=== PATIENT | male | born 1995 | race Caucasian/White ===

== ENCOUNTER 2019-12-30 05:15 | Emergency (ER) | payer MEDICAID ==
[~2019-12-30] VITALS: Ht 180.3 cm; Wt 148.3 kg
[~2019-12-30 05:15] MED LIST: IBUP-1985 PO; IBUP-1986 PO; LURA120T PO
[2019-12-30] MEDS ORDERED: normal saline 1000ml 1,000 ML IV ONE ×2 (05:50)
[2019-12-30 06:34] LABS: ALBUMIN 4.4 G/DL (3.4-5.0); ANION GAP 10 (8-16); BLOOD UREA NITROGEN 15 MG/DL (7-18); BUN/CREATININE RATIO 12.1 (5.4-32.0); CALCIUM 9.9 MG/DL (8.5-10.1); CHLORIDE 100 MMOL/L (99-107); CREATININE 1.24 MG/DL (0.60-1.10); GLUCOSE 379 MG/DL (70-104); SODIUM 139 MMOL/L (135-145); TOTAL CARBON DIOXIDE 28.7 MMOL/L (24-32); eGFR 70 ML/MIN
[2019-12-30 06:41] LABS: POTASSIUM 3.7 MMOL/L (3.5-5.1)
[2019-12-30 07:49] VITALS: BP 162/93
== END 2019-12-30 07:51 | disposition home or self-care (01) ==
LOC: ER 05:16
DX: E11.65 Type 2 diabetes mellitus with hyperglycemia (principal); R39.198 Other difficulties with micturition; J45.909 Unspecified asthma, uncomplicated; F41.9 Anxiety disorder, unspecified; F31.9 Bipolar disorder, unspecified; F20.9 Schizophrenia, unspecified; Z90.89 Acquired absence of other organs; Z56.0 Unemployment, unspecified; Z59.0 Homelessness; Z79.899 Other long term (current) drug therapy
CPT/HCPCS: 36415; 80048; 82948; 96360; 99283; J7030

== ENCOUNTER 2020-01-01 00:17 | Emergency (ER) | payer MEDICAID ==
[~2020-01-01] VITALS: Ht 182.9 cm; Wt 136.0 kg
[2020-01-01 00:22] VITALS: BP 163/117
[2020-01-01 01:01] LABS: BASOPHILS # (AUTO) 0.1 X10'3 (0-0.2); BASOPHILS % (AUTO) 0.8 % (0-1); EOSINOPHILS # (AUTO) 0.1 X10'3 (0-0.9); EOSINOPHILS % (AUTO) 1.6 % (0-6); HEMATOCRIT 44.3 % (42.0-52.0); HEMOGLOBIN 15.3 g/dl (14.0-17.9); LYMPHOCYTES # (AUTO) 3.1 X10'3 (1.1-4.8); LYMPHOCYTES % (AUTO) 39.4 % (21-51); MEAN CORPUSCULAR HEMOGLOBIN 32.2 PG (27.0-31.0); MEAN CORPUSCULAR HGB CONC 34.6 g/dL (33.0-36.5); MEAN CORPUSCULAR VOLUME 92.9 FL (78-98); MEAN PLATELET VOLUME 9.6 FL (7.4-10.4); MONOCYTES # (AUTO) 0.6 X10'3 (0-0.9); MONOCYTES % (AUTO) 7.7 % (2-12); NEUTROPHILS % (AUTO) 50.5 % (42-75); PLATELET COUNT 216 X10'3 (140-440); RED BLOOD COUNT 4.77 X10'6 (4.70-6.10); RED CELL DISTRIBUTION WIDTH 13.2 % (11.5-14.5); WHITE BLOOD COUNT 7.9 X10'3 (4.5-11.0)
[2020-01-01 01:15] LABS: ALANINE AMINOTRANSFERASE 171 U/L (12-78); ALBUMIN 4.2 G/DL (3.4-5.0); ALBUMIN/GLOBULIN RATIO 1.3 (1.1-1.5); ALKALINE PHOSPHATASE 76 IU/L (46-116); ANION GAP 9 (8-16); ASPARTATE AMINO TRANSFERASE 42 U/L (10-37); BILIRUBIN,TOTAL 1.2 MG/DL (0.1-1.0); BLOOD UREA NITROGEN 12 MG/DL (7-18); BUN/CREATININE RATIO 10.5 (5.4-32.0); CALCIUM 8.9 MG/DL (8.5-10.1); CHLORIDE 103 MMOL/L (99-107); CREATININE 1.14 MG/DL (0.60-1.10); GLUCOSE 283 MG/DL (70-104); POTASSIUM 3.4 MMOL/L (3.5-5.1); SODIUM 139 MMOL/L (135-145); TOTAL CARBON DIOXIDE 26.9 MMOL/L (24-32); TOTAL PROTEIN 7.5 G/DL (6.4-8.2); eGFR 78 ML/MIN
[2020-01-01 01:20] LABS: URINE AMPHETAMINE SCREEN NEGATIVE (Neg); URINE BARBITUATE SCREEN NEGATIVE (Neg); URINE BENZODIAZEPINES SCREEN NEGATIVE (Neg); URINE CANNABINOID SCREEN NEGATIVE (Neg); URINE COCAINE SCREEN NEGATIVE (Neg); URINE METHADONE SCREEN NEGATIVE (Neg); URINE OPIATE SCREEN NEGATIVE (Neg); URINE PHENCYCLIDINE SCREEN NEGATIVE (Neg)
[2020-01-01] MEDS ORDERED: GLIP5TAB13 PO (01:25)
[2020-01-01] MEDS ORDERED: METF-436 PO (01:25)
[2020-01-01] MEDS ORDERED: MELO-102 PO (01:25)
[2020-01-01 01:31] LABS: ETHANOL < 0.010 GM/DL (0.0-0.010)
[2020-01-01] MEDS ORDERED: potassium Cl 20 mEq SR tablet PO STA (01:36)
--- NOTE | 2020-01-01 02:33 | NUR ---
PT APPEARS TO BE SLEEPING PEACEFULLY, NO S/S DISTRESS, RESPIRATIONS EVEN AND UNLABORED. WILL CONTINUE TO MONITOR.
--- NOTE | 2020-01-01 06:01 | NUR ---
PT APPEARS TO BE SLEEPING PEACEFULLY, NO S/S DISTRESS, RESPIRATIONS EVEN AND UNLABORED. WILL CONTINUE TO MONITOR.
--- NOTE | 2020-01-01 08:27 | NUR ---
BREAKFAST TRAY HERE, ACCUCHECK DONE BEFORE TRAY GIVEN AND 334. DR. GOODMAN ADVISED. PT DOESNT WANT TO EAT AT THIS TIME AND WENT BACK TO SLEEP. DENIES NEED AT THIS TIME.
--- NOTE | 2020-01-01 09:07 | NUR ---
SPOKE WITH PHARMACIST WHO STATED TO ORDER HYPERGLYCEMIA PROTOCOL THEN COMPLETE MED REC FOR PTS METFORMIN AND THEY WILL ISSUE IT. PT STATES HE DOESNT KNOW HOW MUCH METFORMIN HE TAKES OR WHICH PHARMACY HE USES, STATES, "LEAVE ME ALONE TO SLEEP". STILL HASNT TOUCHED HIS BREAKFAST.
[2020-01-01 09:11] LABS: HEMOGLOBIN A1C 9.5 % (4.5-6.2)
--- NOTE | 2020-01-01 10:19 | NUR ---
PT REFUSING INSULIN PROTOCOL. STATES HE NORMALLY SLEEPS IN AND DOESNT WANT ME IN HIS ROOM. MD NOTIFIED.
--- NOTE | 2020-01-01 10:57 | NUR ---
pt moved to bed 22. stated was unaware of blood sugar this morning. stated he is no longer suicidal and that he just needed to sleep and feels better now.
--- NOTE | 2020-01-01 11:08 | NUR ---
spoke to [place] about pt bs. ordered metformin 500mg bid as pt previously took it. pt stated only missed one day worth of medications.
[2020-01-01] MEDS ORDERED: metFORMIN 500mg tablet PO ONE ×2 (11:10→20:00)
--- NOTE | 2020-01-01 12:49 | NUR ---
relieving RN for break, pt is resting quietly on gurney,
--- NOTE | 2020-01-01 13:50 | NUR ---
jonathan packer notified of bs being elevated to 356. pt stated ate a brownie with lunch not long ago.
== END 2020-01-01 13:58 ==
LOC: ER 00:18
DX: R45.851 Suicidal ideations (principal); F31.9 Bipolar disorder, unspecified; F41.9 Anxiety disorder, unspecified; J45.909 Unspecified asthma, uncomplicated; F20.9 Schizophrenia, unspecified; Z59.0 Homelessness; Z56.0 Unemployment, unspecified; Z90.89 Acquired absence of other organs; Z79.899 Other long term (current) drug therapy
CPT/HCPCS: 36415; 80053; 80305; 80320; 82948; 83036; 84443; 85025; 99285

== ENCOUNTER 2020-01-27 20:58 | Emergency (ER) | payer MEDICAID ==
[~2020-01-27] VITALS: Ht 180.3 cm; Wt 144.5 kg
[~2020-01-27 20:58] MED LIST changes: +GLIP5TAB13 PO; -IBUP-1985 PO; -IBUP-1986 PO; -LURA120T PO; +MELO-102 PO; +METF-436 PO
[2020-01-27 22:19] LABS: BASOPHILS # (AUTO) 0.1 X10'3 (0-0.2); BASOPHILS % (AUTO) 0.6 % (0-1); EOSINOPHILS # (AUTO) 0.1 X10'3 (0-0.9); EOSINOPHILS % (AUTO) 1.2 % (0-6); HEMATOCRIT 44.1 % (42.0-52.0); HEMOGLOBIN 15.4 g/dl (14.0-17.9); LYMPHOCYTES # (AUTO) 3.8 X10'3 (1.1-4.8); LYMPHOCYTES % (AUTO) 38.5 % (21-51); MEAN CORPUSCULAR HEMOGLOBIN 32.5 PG (27.0-31.0); MEAN CORPUSCULAR HGB CONC 34.9 g/dL (33.0-36.5); MEAN PLATELET VOLUME 9.7 FL (7.4-10.4); MONOCYTES # (AUTO) 0.6 X10'3 (0-0.9); MONOCYTES % (AUTO) 5.9 % (2-12); NEUTROPHILS # (AUTO) 5.4 X10'3 (1.8-7.7); NEUTROPHILS % (AUTO) 53.8 % (42-75); PLATELET COUNT 207 X10'3 (140-440); RED BLOOD COUNT 4.74 X10'6 (4.70-6.10); RED CELL DISTRIBUTION WIDTH 12.6 % (11.5-14.5)
[2020-01-27 22:29] LABS: URINE AMPHETAMINE SCREEN NEGATIVE (Neg); URINE BARBITUATE SCREEN NEGATIVE (Neg); URINE BENZODIAZEPINES SCREEN NEGATIVE (Neg); URINE CANNABINOID SCREEN NEGATIVE (Neg); URINE COCAINE SCREEN NEGATIVE (Neg); URINE METHADONE SCREEN NEGATIVE (Neg); URINE OPIATE SCREEN NEGATIVE (Neg); URINE PHENCYCLIDINE SCREEN NEGATIVE (Neg)
[2020-01-27 22:38] LABS: ALBUMIN/GLOBULIN RATIO 1.1 (1.1-1.5); ANION GAP 12 (8-16); BILIRUBIN,TOTAL 0.5 MG/DL (0.1-1.0); BLOOD UREA NITROGEN 18 MG/DL (7-18); BUN/CREATININE RATIO 12.9 (5.4-32.0); CHLORIDE 100 MMOL/L (99-107); CREATININE 1.39 MG/DL (0.60-1.10); ETHANOL < 0.010 GM/DL (0.0-0.010); GLUCOSE 282 MG/DL (70-104); SODIUM 137 MMOL/L (135-145); TOTAL CARBON DIOXIDE 25.4 MMOL/L (24-32); TOTAL PROTEIN 7.5 G/DL (6.4-8.2); eGFR 62 ML/MIN
[2020-01-27 22:39] LABS: POTASSIUM 3.5 MMOL/L (3.5-5.1)
[2020-01-27 23:12] LABS: ALANINE AMINOTRANSFERASE 86 U/L (12-78); ALKALINE PHOSPHATASE 89 IU/L (46-116); ASPARTATE AMINO TRANSFERASE 32 U/L (10-37)
[2020-01-27] MEDS ORDERED: ARIP400S3 IM (23:23)
--- NOTE | 2020-01-28 06:25 | NUR ---
Pt walked over from main ER with nurse and placed in bed 24. Pt depressed with SI r/[facility] and being treated poorly by others. Pt planned on ingesting large amounts of soda to induce a diabetic coma. Pt sitting on bed in no acute distress.
[2020-01-28] MEDS ORDERED: aripiprazole 400mg suspension ER syringe IM SCH (06:40)
--- NOTE | 2020-01-28 06:51 | NUR ---
FAXED PACKET [facility]
[2020-01-28] MEDS: glipizide 5mg tablet PO SCH (08:16)
[2020-01-28] MEDS: metFORMIN 500mg tablet PO SCH ×2 (08:16→20:09)
[2020-01-28] MEDS: mupirocin 2% ointment 22GM TP SCH ×2 (10:10→20:09)
--- NOTE | 2020-01-28 10:29 | NUR ---
Pt calm and talkative before and after breakfast. Took meds w/o issue. Spoke with [facility] sewing machine operator plastic zipper and made personal phone calls. Pt continues to talk about wanting to go to a board and care that is nice and doesnt have roaches or bed bugs. Pt repoprts [facility] may be inquiring to get him to the [facility]. Pt received Abilify Maintenna 400 mg IM. Pt currently sleeping in bed w/o distress.
--- NOTE | 2020-01-28 14:27 | NUR ---
Pt slept till lunch and awoke to eat. Pt waiting to have phone interview with ASHLEY nino. Resting in bed w/o distress.
--- NOTE | 2020-01-28 17:18 | NUR ---
Pt woke and engaged in interview with [facility] staff. He felt good about possibility of getting a bed there and stated we will know tomorrow. Pt pleasant and cooperative and attempted to make a phone call before returning to sleep.
--- NOTE | 2020-01-28 17:23 | NUR ---
[facility] staff reported that Pt accepted at [facility] and would take him at 1100 8, tomorrow. Chest x-ray ordered to r/o TB.
--- NOTE | 2020-01-28 19:00 | NUR ---
One to one with the patient who reports he is feeling calm and tired. He stated that he has periodically been having suicidal thoughts but states he can be safe at the [facility]. He is pleasant and cooperative but has been sleeping. He ate 100% of his evening meal
--- NOTE | 2020-01-28 20:43 | NUR ---
The patient currently appears to be sleeping
[2020-01-28] MEDS ORDERED: Melatonin 3mg tablet PO SCH (21:00)
--- NOTE | 2020-01-28 22:39 | NUR ---
The patient appears to be sleeping
--- NOTE | 2020-01-29 00:11 | NUR ---
The patient appears to be sleeping
--- NOTE | 2020-01-29 01:43 | NUR ---
The patient appears to be sleeping
--- NOTE | 2020-01-29 04:07 | NUR ---
The patient appears to be sleeping
--- NOTE | 2020-01-29 04:56 | NUR ---
The patient appears to be sleeping
[2020-01-29 05:58] VITALS: BP 102/58
--- NOTE | 2020-01-29 06:41 | NUR ---
Patient sleeping on right side. No distress observed. Continue to monitor.
--- NOTE | 2020-01-29 07:28 | NUR ---
Spoke with Radiology. States no Radiologist today. They will send CXR to [facility] for reading. Patient to be sent to the [facility] at 11:00 pending results of the Xray.
[2020-01-29] MEDS: metFORMIN 500mg tablet PO SCH (08:15)
[2020-01-29] MEDS: glipizide 5mg tablet PO SCH (08:15)
[2020-01-29] MEDS: mupirocin 2% ointment 22GM TP SCH (08:15)
--- NOTE | 2020-01-29 09:34 | NUR ---
Breaking Primary RN, pt is laying on left side, eyes closed, appears to be asleep, no agitation observed
--- NOTE | 2020-01-29 11:13 | NUR ---
Break relief for primary nurse. Pt is resting in a position of comfort on the bed. Pt is awaiting transport to a mental health facility.
--- NOTE | 2020-01-29 11:47 | NUR ---
Patient ambulatory with fleet driver from [facility] to the [facility].
== END 2020-01-29 11:53 | disposition home or self-care (01) ==
LOC: ER 20:58
DX: R45.851 Suicidal ideations (principal); R79.1 Abnormal coagulation profile; J45.909 Unspecified asthma, uncomplicated; F41.9 Anxiety disorder, unspecified; F31.9 Bipolar disorder, unspecified; F20.9 Schizophrenia, unspecified; Z59.0 Homelessness; Z56.0 Unemployment, unspecified; Z90.89 Acquired absence of other organs; Z79.899 Other long term (current) drug therapy; Z79.84 Long term (current) use of oral hypoglycemic drugs
CPT/HCPCS: 36415; 80053; 80305; 80320; 85025; 96372; 99285

== ENCOUNTER 2020-02-12 16:32 | Emergency (ER) | payer MEDICAID ==
[~2020-02-12] VITALS: Ht 180.3 cm; Wt 144.6 kg
[~2020-02-12 16:32] MED LIST changes: +ARIP400S3 IM
[2020-02-12 16:35] VITALS: BP 137/84
== END 2020-02-12 19:07 | disposition left against medical advice (07) ==
LOC: ER 16:33
DX: K92.1 Melena (principal); Z53.21 Procedure and treatment not carried out due to patient leaving prior to being seen by health care provider

== ENCOUNTER 2020-02-13 19:30 | Emergency (ER) | payer MEDICAID ==
[~2020-02-13] VITALS: Ht 180.3 cm; Wt 147.4 kg
[2020-02-13 21:03] LABS: BASOPHILS % (AUTO) 0.6 % (0-1); EOSINOPHILS # (AUTO) 0.1 X10'3 (0-0.9); EOSINOPHILS % (AUTO) 1.2 % (0-6); HEMOGLOBIN 15.3 g/dl (14.0-17.9); LYMPHOCYTES # (AUTO) 2.7 X10'3 (1.1-4.8); LYMPHOCYTES % (AUTO) 34.5 % (21-51); MEAN CORPUSCULAR HEMOGLOBIN 32.2 PG (27.0-31.0); MEAN CORPUSCULAR HGB CONC 34.9 g/dL (33.0-36.5); MEAN CORPUSCULAR VOLUME 92.4 FL (78-98); MEAN PLATELET VOLUME 9.5 FL (7.4-10.4); MONOCYTES # (AUTO) 0.5 X10'3 (0-0.9); MONOCYTES % (AUTO) 6.9 % (2-12); NEUTROPHILS # (AUTO) 4.4 X10'3 (1.8-7.7); NEUTROPHILS % (AUTO) 56.8 % (42-75); PLATELET COUNT 206 X10'3 (140-440); RED BLOOD COUNT 4.76 X10'6 (4.70-6.10); RED CELL DISTRIBUTION WIDTH 12.2 % (11.5-14.5); WHITE BLOOD COUNT 7.8 X10'3 (4.5-11.0)
[2020-02-13 21:07] LABS: CLARITY,URINE CLEAR (Clear); COLOR,URINE YELLOW (Yellow); GLUCOSE, URINE >=1000 mg/dl (Neg); KETONES,URINE NEGATIVE (Neg); LEUKOCYTE ESTERASE ,URINE NEGATIVE (Neg); NITRITES, URINE NEGATIVE (Neg); OCCULT BLOOD,URINE TRACE-INTACT (Neg); PH,URINE 5.5 (4.8-8.0); PROTEIN,URINE NEGATIVE (Neg); UROBILINOGEN,URINE 0.2 E.U/dL (0.2-1.0)
[2020-02-13 21:08] LABS: UA COLLECTION TYPE CLN CATCH MIDSTREAM
[2020-02-13 21:12] LABS: ALANINE AMINOTRANSFERASE 93 U/L (12-78); ALBUMIN 3.9 G/DL (3.4-5.0); ALKALINE PHOSPHATASE 86 IU/L (46-116); ANION GAP 10 (8-16); ASPARTATE AMINO TRANSFERASE 16 U/L (10-37); BILIRUBIN,TOTAL 0.4 MG/DL (0.1-1.0); BLOOD UREA NITROGEN 24 MG/DL (7-18); BUN/CREATININE RATIO 21.8 (5.4-32.0); CALCIUM 9.1 MG/DL (8.5-10.1); CHLORIDE 99 MMOL/L (99-107); LIPASE 250 U/L (73-393); POTASSIUM 4.1 MMOL/L (3.5-5.1); SODIUM 136 MMOL/L (135-145); TOTAL CARBON DIOXIDE 26.7 MMOL/L (24-32); TOTAL PROTEIN 7.7 G/DL (6.4-8.2); eGFR 81 ML/MIN
[2020-02-13 21:14] LABS: GLUCOSE 476 MG/DL (70-104)
[2020-02-13] MEDS ORDERED: normal saline 1000ml 1,000 ML IV ONE ×3 (21:30→23:25)
[2020-02-13 21:36] LABS: BACTERIA,URINE NONE SEEN /HPF (Neg); MUCUS STRANDS NONE SEEN /LPF (Neg); RBC,URINE 0-2 /HPF (0-2); SQUAMOUS EPITHELIAL CELL,UR FEW /LPF (FEW); WBC,URINE 0-4 /HPF (0-4)
[2020-02-13] MEDS ORDERED: metFORMIN 500mg tablet PO ONE (22:25)
[2020-02-14 00:47] VITALS: BP 120/75
== END 2020-02-14 00:51 | disposition home or self-care (01) ==
LOC: ER 19:31
DX: E11.65 Type 2 diabetes mellitus with hyperglycemia (principal); J45.909 Unspecified asthma, uncomplicated; F41.9 Anxiety disorder, unspecified; F31.9 Bipolar disorder, unspecified; F20.9 Schizophrenia, unspecified; Z90.89 Acquired absence of other organs; Z56.0 Unemployment, unspecified; Z59.0 Homelessness; Z79.899 Other long term (current) drug therapy
CPT/HCPCS: 36415; 80053; 81001; 82948; 83690; 85025; 96360; 96361; 99285; J7030

== ENCOUNTER → 2020-04-06 | Emergency (ER) | payer MEDICAID ==
[~2020-04-06] VITALS: Ht 180.3 cm; Wt 132.0 kg
[2020-04-06 20:28] VITALS: BP 133/91
--- NOTE | 2020-04-06 20:40 | NUR ---
Pt moved from triage to room 17, braiding operator aware of patient.
== END | disposition home or self-care (01) ==
LOC: ER 19:50
DX: F41.9 Anxiety disorder, unspecified (principal); F31.9 Bipolar disorder, unspecified; J45.909 Unspecified asthma, uncomplicated; F20.9 Schizophrenia, unspecified; Z90.89 Acquired absence of other organs; Z56.0 Unemployment, unspecified; Z59.0 Homelessness; Z79.899 Other long term (current) drug therapy
CPT/HCPCS: 82948; 99281; 99282

== ENCOUNTER 2020-10-26 20:59 | Emergency (ER) | payer MEDICAID ==
[~2020-10-26] VITALS: Ht 180.3 cm; Wt 134.0 kg
[2020-10-26 21:52] LABS: BASOPHILS % (AUTO) 0.4 % (0-1); EOSINOPHILS # (AUTO) 0.1 X10'3 (0-0.9); EOSINOPHILS % (AUTO) 0.5 % (0-6); HEMATOCRIT 48.6 % (42.0-52.0); HEMOGLOBIN 16.9 g/dl (14.0-17.9); LYMPHOCYTES # (AUTO) 3.1 X10'3 (1.1-4.8); LYMPHOCYTES % (AUTO) 28.1 % (21-51); MEAN CORPUSCULAR HEMOGLOBIN 32.2 PG (27.0-31.0); MEAN CORPUSCULAR HGB CONC 34.7 g/dL (33.0-36.5); MEAN CORPUSCULAR VOLUME 92.9 FL (78-98); MONOCYTES # (AUTO) 0.9 X10'3 (0-0.9); MONOCYTES % (AUTO) 7.9 % (2-12); NEUTROPHILS % (AUTO) 63.1 % (42-75); PLATELET COUNT 231 X10'3 (140-440); RED BLOOD COUNT 5.23 X10'6 (4.70-6.10); RED CELL DISTRIBUTION WIDTH 12.6 % (11.5-14.5); WHITE BLOOD COUNT 11.1 X10'3 (4.5-11.0)
[2020-10-26 21:59] LABS: ALANINE AMINOTRANSFERASE 42 U/L (12-78); ALBUMIN 4.2 G/DL (3.4-5.0); ALBUMIN/GLOBULIN RATIO 1.2 (1.1-1.5); ALKALINE PHOSPHATASE 94 IU/L (46-116); ANION GAP 18 (8-16); ASPARTATE AMINO TRANSFERASE 7 U/L (10-37); BILIRUBIN,TOTAL 0.7 MG/DL (0.1-1.0); BLOOD UREA NITROGEN 18 MG/DL (7-18); BUN/CREATININE RATIO 16.7 (5.4-32.0); CHLORIDE 95 MMOL/L (99-107); CREATININE 1.08 MG/DL (0.60-1.10); GLUCOSE 429 MG/DL (70-104); POTASSIUM 3.7 MMOL/L (3.5-5.1); SODIUM 134 MMOL/L (135-145); TOTAL CARBON DIOXIDE 21.2 MMOL/L (24-32); TOTAL PROTEIN 7.7 G/DL (6.4-8.2); eGFR 82 ML/MIN
[2020-10-26] MEDS ORDERED: normal saline 1000ML IV soln IV ONE (22:05)
[2020-10-26] MEDS ORDERED: insulin regular, human 10 units/0.1 ml syringe IV ONE (22:05)
[2020-10-26 22:28] LABS: ABG BASE EXCESS -4.7 mmol/L (-2.0-2.0); ABG HCO3 19.9 mmol/L (22.0-26.0); ABG OXYGEN SATURATION 94.7 % (94-97); ABG PCO2 (T) 36.5 mmHg (35.0-48.0); ABG PO2 (T) 75.7 mmHg (75.0-100.0); ALLEN'S TEST POSITIVE; FMetHb 0.1 % (0.0-1.5); FO2Hb 93.7 % (94-97); PATIENT TEMPERATURE 37.4; TOTAL HEMOGLOBIN 16.5 G/dl (14.0-18.0)
[2020-10-26] MEDS ORDERED: LANTUS SQ (23:02)
[2020-10-27 00:22] LABS: ALBUMIN 3.4 G/DL (3.4-5.0); ANION GAP 11 (8-16); BLOOD UREA NITROGEN 17 MG/DL (7-18); BUN/CREATININE RATIO 20.5 (5.4-32.0); CHLORIDE 103 MMOL/L (99-107); CREATININE 0.83 MG/DL (0.60-1.10); GLUCOSE 273 MG/DL (70-104); POTASSIUM 3.2 MMOL/L (3.5-5.1); SODIUM 139 MMOL/L (135-145); eGFR > 90 ML/MIN
[2020-10-27 00:36] VITALS: BP 126/83
[2020-10-27] MEDS ORDERED: potassium Cl 20 mEq SR tablet PO STA (00:55)
== END 2020-10-27 01:16 | disposition home or self-care (01) ==
LOC: ER 21:00
DX: E11.65 Type 2 diabetes mellitus with hyperglycemia (principal); E86.0 Dehydration; R53.1 Weakness; J45.909 Unspecified asthma, uncomplicated; F41.9 Anxiety disorder, unspecified; F20.9 Schizophrenia, unspecified; F31.9 Bipolar disorder, unspecified; Z90.89 Acquired absence of other organs; Z79.899 Other long term (current) drug therapy
CPT/HCPCS: 36415; 36600; 80048; 80053; 82009; 82803; 82948; 85018; 85025; 96361; 96374; 99284; J1815; J7030

== ENCOUNTER 2020-11-06 04:39 | Emergency (ER) | payer MEDICAID ==
[~2020-11-06] VITALS: Ht 180.3 cm; Wt 130.0 kg
[~2020-11-06 04:39] MED LIST changes: +LANTUS SQ
[2020-11-06 05:19] VITALS: BP 148/93
[2020-11-06] MEDS ORDERED: LIDOcaine 1% W/epiNEPHrine 1:200,000 10ml vial IJ ONE (07:45)
[2020-11-06] MEDS ORDERED: morphine 2 MG/ML inj. syringe IM ONE (07:50)
[2020-11-06] MEDS ORDERED: SULF1TAB49 PO (08:15)
[2020-11-07] MEDS ORDERED: ACET-3080 PO (10:45)
== END 2020-11-06 09:23 | disposition home or self-care (01) ==
LOC: ER 04:39
DX: L05.91 Pilonidal cyst without abscess (principal); E11.8 Type 2 diabetes mellitus with unspecified complications; J45.909 Unspecified asthma, uncomplicated; Z79.4 Long term (current) use of insulin; Z79.899 Other long term (current) drug therapy
CPT/HCPCS: 10080; 76882; 96372; 99284; J2270; 10060; 99283

== ENCOUNTER 2020-11-07 09:28 | Emergency (ER) | payer MEDICAID ==
[~2020-11-07] VITALS: Ht 180.3 cm; Wt 130.0 kg
[~2020-11-07 09:28] MED LIST changes: +SULF1TAB49 PO
[2020-11-07 09:56] VITALS: BP 137/91
[2020-11-07] MEDS ORDERED: ACET-3080 PO (10:45)
[2020-11-07] MEDS ORDERED: ketorolac tromethamine 15mg/ml inj. IM ONE (10:55)
== END 2020-11-07 10:57 | disposition home or self-care (01) ==
LOC: ER 09:29
DX: L05.91 Pilonidal cyst without abscess (principal); J45.909 Unspecified asthma, uncomplicated; E11.9 Type 2 diabetes mellitus without complications; Z90.49 Acquired absence of other specified parts of digestive tract; Z79.4 Long term (current) use of insulin; Z79.899 Other long term (current) drug therapy
CPT/HCPCS: 96372; 99283; J1885

== ENCOUNTER 2020-12-08 10:12 | Emergency (ER) | payer MEDICAID ==
[~2020-12-08] VITALS: Ht 180.3 cm; Wt 123.2 kg
[~2020-12-08 10:12] MED LIST changes: -SULF1TAB49 PO
[2020-12-08 12:38] LABS: ALANINE AMINOTRANSFERASE 24 U/L (12-78); ALKALINE PHOSPHATASE 114 IU/L (46-116); ANION GAP 10 (8-16); ASPARTATE AMINO TRANSFERASE 11 U/L (10-37); BILIRUBIN,TOTAL 0.8 MG/DL (0.1-1.0); BLOOD UREA NITROGEN 11 MG/DL (7-18); BUN/CREATININE RATIO 14.1 (5.4-32.0); CALCIUM 9.5 MG/DL (8.5-10.1); CHLORIDE 97 MMOL/L (99-107); CREATININE 0.78 MG/DL (0.60-1.10); GLUCOSE 373 MG/DL (70-104); POTASSIUM 3.8 MMOL/L (3.5-5.1); SODIUM 135 MMOL/L (135-145); TOTAL CARBON DIOXIDE 27.9 MMOL/L (24-32); TOTAL PROTEIN 7.9 G/DL (6.4-8.2); eGFR > 90 ML/MIN
[2020-12-08 12:43] LABS: BASOPHILS % (AUTO) 0.3 % (0-1); EOSINOPHILS # (AUTO) 0.1 X10'3 (0-0.9); EOSINOPHILS % (AUTO) 0.9 % (0-6); HEMATOCRIT 48.3 % (42.0-52.0); HEMOGLOBIN 16.7 g/dl (14.0-17.9); LYMPHOCYTES # (AUTO) 1.8 X10'3 (1.1-4.8); LYMPHOCYTES % (AUTO) 15.3 % (21-51); MEAN CORPUSCULAR HEMOGLOBIN 31.7 PG (27.0-31.0); MEAN CORPUSCULAR HGB CONC 34.5 g/dL (33.0-36.5); MEAN CORPUSCULAR VOLUME 91.9 FL (78-98); MEAN PLATELET VOLUME 10.1 FL (7.4-10.4); MONOCYTES # (AUTO) 0.8 X10'3 (0-0.9); NEUTROPHILS # (AUTO) 9.1 X10'3 (1.8-7.7); NEUTROPHILS % (AUTO) 76.5 % (42-75); PLATELET COUNT 235 X10'3 (140-440); RED BLOOD COUNT 5.26 X10'6 (4.70-6.10); RED CELL DISTRIBUTION WIDTH 12.4 % (11.5-14.5); WHITE BLOOD COUNT 11.8 X10'3 (4.5-11.0)
[2020-12-08 13:30] VITALS: BP 132/88
[2020-12-08] MEDS ORDERED: insulin regular, human 10 units/0.1 ml syringe SQ ONE (13:45)
[2020-12-08] MEDS ORDERED: normal saline 1000ML IV soln IVB ONE (13:45)
[2020-12-08] MEDS ORDERED: BLOO1EAC70 MC (15:05)
== END 2020-12-08 15:37 | disposition home or self-care (01) ==
LOC: ER 10:13
DX: E11.65 Type 2 diabetes mellitus with hyperglycemia (principal); R53.83 Other fatigue; R35.8 Other polyuria; R63.1 Polydipsia; J45.909 Unspecified asthma, uncomplicated; F41.9 Anxiety disorder, unspecified; F31.9 Bipolar disorder, unspecified; F20.9 Schizophrenia, unspecified; Z90.89 Acquired absence of other organs; Z79.899 Other long term (current) drug therapy; Z79.4 Long term (current) use of insulin
CPT/HCPCS: 36415; 80053; 82948; 85025; 96372; 99283; J1815; J7030